=== PATIENT | female | born 1945 | race Hispanic/Latino ===

== ENCOUNTER 2017-04-30 08:22 | Observation (INO) | payer MEDICARE, OTHER ==
[2017-04-29 13:53] LABS: BASOPHILS % 0.4 % (0.0-1.0); EOSINOPHILS # (AUTO) 0.3 (0.0-0.4); EOSINOPHILS % 3.9 % (0.0-6.0); HEMATOCRIT 36.3 % (38.2-49.6); HEMOGLOBIN 12.1 g/dL (14.0-18.0); LYMPHOCYTES # (AUTO) 2.4 (1.0-3.2); LYMPHOCYTES % 30.8 % (18.0-39.1); MEAN CORPUSCULAR HEMOGLOBIN 29.7 pg (28-32); MEAN CORPUSCULAR HGB CONC 33.3 g/dL (31-35); MEAN CORPUSCULAR VOLUME 89.2 fL (81-99); MONOCYTES # (AUTO) 0.8 (0.2-0.8); MONOCYTES % 10.6 % (4.4-11.3); NEUTROPHILS # (AUTO) 4.1 (2.1-6.9); PLATELET COUNT 189 x10e3/uL (140-360); RED BLOOD COUNT 4.07 x10e6/uL (4.3-5.7); RED CELL DISTRIBUTION WIDTH 12.7 % (11.7-14.4)
[2017-04-29 14:13] LABS: INR 0.86; PROTHROMBIN TIME 12.1 seconds (11.9-14.5)
--- NOTE | 2017-04-29 14:16 | Diagnostic Imaging Report ---
PROCEDURE: Frontal and lateral views of the chest. COMPARISON: None. INDICATIONS: PRE OPERATIVE CHEST X-RAY FOR HEART SURGERY FINDINGS: Lines/tubes: None. Lungs: The lungs are well inflated and clear. There is no evidence of pneumonia or pulmonary edema. Pleura: There is no pleural effusion or pneumothorax. Heart and mediastinum: The heart and the mediastinum are normal. Bones: Multilevel degenerative changes of the thoracic spine. IMPRESSION: 1. No acute cardiopulmonary disease. Dictated by: Nacho Stoll M.D. on 04/29/2017 at 14:19 Electronically approved by: Nacho Stoll M.D. on 04/29/2017 at 14:24
[2017-04-29 14:20] LABS: ALANINE AMINOTRANSFERASE 23 IU/L (0-55); ALBUMIN 3.8 g/dL (3.5-5.0); ALKALINE PHOSPHATASE 42 IU/L (40-150); ANION GAP 13.9 mmol/L (8-16); BLOOD UREA NITROGEN 15 mg/dL (7-26); BUN/CREATININE RATIO 22 (6-25); CALCIUM 10.6 mg/dL (8.4-10.2); CARBON DIOXIDE 31 mmol/L (22-29); CHLORIDE 103 mmol/L (98-107); CHOL/HDL RATIO 2.9 (3.9-4.7); CHOLESTEROL 179 MD/DL (0-199); CREATININE, SERUM 0.67 mg/dL (0.72-1.25); EST GLOMERULAR FILTRATION RATE > 60 ML/MIN (60-); GLUCOSE 134 mg/dL (74-118); HDL CHOLESTEROL 61 MG/DL (40-60); LDL CHOLESTEROL 97 MG/DL (60-130); POTASSIUM 4.9 mmol/L (3.5-5.1); SODIUM 143 mmol/L (136-145); TRIGLYCERIDES 103 MG/DL (0-149)
[~2017-04-30] VITALS: Ht 149.9 cm; Wt 60.3 kg
[2017-04-30] VITALS (11 sets, daily range): BP systolic 138–175; BP diastolic 58–75
[~2017-04-30 08:22] MED LIST: ALENDRONATE SOD70 MG PO; FENTANYL CITRATE/PF 100MCG/2 ML INJ ONE; HEPARIN SOD (PORCINE) 1000 UNIT/ML 30ML ONE; HEPARIN SOD/SOD CHLORIDE 2,000 ML ONE; IOPAMIDOL 370 MG/ML 200 ML INFUS..BTL INJ ONE; JANUVIA100 MG PO; LEVOTHYROXINE50 MCG PO; LIDOCAINE HCL 2% LOCAL 20 ML VIAL ONE; METFORMIN HCL500 M2 PO; MIDAZOLAM HCL 2 MG/2 ML VIAL ONE; NITROGLYCERIN/D5W 200 MCG/ML 250 ML ONE; PRAVASTATIN SOD40 MG PO; SODIUM CHLORIDE 0.9% 1000ML 1,000 ML ONE; TYLENOL325 MG PO; VASOTEC5 MG PO
[2017-04-30] MEDS ORDERED: BIVALIRUDIN 250 MG/VIAL IV ONE (08:53)
[2017-04-30] MEDS ORDERED: SODIUM CHLORIDE 0.9% 50ML 50 ML ONE (08:53)
[2017-04-30] MEDS ORDERED: IOPAMIDOL 370 MG/ML 200 ML INFUS..BTL INJ ONE (08:58)
[2017-04-30] MEDS ORDERED: CLOPIDOGREL BISULFATE 75 MG TAB ONE ×2 (09:01→09:02)
[2017-04-30] MEDS ORDERED: ASPIRIN 81 MG CHEW TAB ONE (09:02)
[2017-04-30] MEDS: SODIUM CHLORIDE 0.9% 1000ML 1,000 ML IV SCH ×3 (09:43→22:27)
[2017-04-30] MEDS ORDERED: HYDROCODONE/APAP 5MG-325MG TAB PO PRN (09:45)
[2017-04-30] MEDS ORDERED: ONDANSETRON HCL INJ 2 MG/ML VIAL IV PRN (09:45)
--- NOTE | 2017-04-30 10:41 | History and Physical ---
CARDIOLOGY HISTORY AND PHYSICAL CHIEF COMPLAINT: Placed in OBS for status post RPDA, drug-eluting stent PCI. HISTORY OF PRESENT ILLNESS: Ms. Staley is a 71-year-old woman with diabetes, hypertension, dyslipidemia presenting with dyspnea on exertion concerning for crescendo angina pectoris, CCS-3, frequent PVCs. Had outpatient testing, including abnormal stresses with mild impairment and limited diastolic function for which cardiac catheterization was performed today confirming severe RPDA ostial to proximal stenosis, now status post drug-eluting stent PCI, as well as moderate disease of other coronary vessels. LVEF estimated at 50% to 55%. Frequent PVCs noted throughout the coronary angiography. Patient is status post aspirin 325 mg, as well as clopidogrel 600 mg loading today. Placed in observation. No current complaints. REVIEW OF SYSTEMS: A 12-system review is negative except for as noted above. ALLERGIES: NO KNOWN DRUG ALLERGIES. PAST MEDICAL HISTORY: As per HPI. Also, hypothyroidism, osteoporosis. SOCIAL HISTORY: No smoking, alcohol or drugs. FAMILY HISTORY: Noncontributory. PHYSICAL EXAMINATION VITALS: Blood pressure 170/70, heart rate 68, frequent PVCs on telemetry, respiratory rate 18, O2 sat 100% on room air. GENERAL: No acute distress. Alert. NECK: No JVD. CHEST: Clear to auscultation. CARDIOVASCULAR: Regular rate and rhythm. Normal S1 and S2. No S3. No S4. No murmurs or rubs. ABDOMEN: Soft. EXTREMITIES: No edema. Warm distal extremities. CARDIOVASCULAR MEDICATIONS: Reviewed. LABS: Reviewed. ASSESSMENT 1. Coronary artery disease: Status post drug-eluting stent and percutaneous coronary intervention to right posterior descending artery with otherwise moderate disease of the rest of the coronary tree. 2. Preserved left ventricular systolic function on left ventriculogram done today. 3. Frequent premature ventricular contractions. RECOMMENDATIONS: Resume home medications. Continue aspirin and Plavix. Bedrest for the next 4 hours. IV fluids. Keep overnight under observation. Will plan for discharge early in a.m. depending on the patient's continued course. Upon discharge, follow up in 2 weeks in the office. Job#: [id number] [place]
--- NOTE | 2017-04-30 10:56 | Operative Report ---
DATE OF PROCEDURE: April 30, 2017 PROCEDURE INDICATIONS: Frequent PVCs, abnormal stress test, dyspnea on exertion concerning crescendo angina pectoris, CCS-3. PROCEDURES PERFORMED 1. Left heart catheterization. 2. Selective coronary angiography times 2. 3. Right posterior descending artery drug-eluting stent percutaneous coronary intervention with Synergy 2.25 x 16 drug-eluting stent. COMPLICATIONS: None. ESTIMATED BLOOD LOSS: Less than 15 mL. PROCEDURE SUMMARY: After consent was obtained, the patient was prepped and draped in a sterile fashion. The right femoral vein was locally infiltrated with 2% lidocaine. Access was obtained using the micropuncture kit, and a 6-Yoruba sheath was placed. All 6-Yoruba catheters were railed over a leading J-wire to their respected positions. A JL4 catheter was used for engagement of the left main, and a JR4 was used for the right coronary artery. A JR4 guide catheter with side holes was used for PCI for this procedure. At the end of the procedure, a 6-Yoruba Angio-Seal closure was deployed successfully. The following findings were noted: 1. LD pressure was 180/70 with end-diastolic pressure of 16. 2. Aortic pressure was 180/70. 3. LV-gram revealed normal left ventricular systolic function with left ventricular ejection fraction of 50% to 55% and normal regional wall motion. 4. Left main with moderate calcifications and distal 30% stenosis, large in caliber and gives off to an LAD and a circumflex. 5. The LAD is medium caliber and terminates in the apical segment of anterior wall with the apex being predominately perfused by the RPDA. The proximal RCA is moderate to severely calcified with 40% stenosis giving 1st diagonal of a small caliber with 50% mid-stenosis of the diagonal. The mid-LAD has 40% stenosis. At least 3 additional small caliber diagonals and multiple septal perforators arise from the distal LAD, which is overall small in caliber. 6. The circumflex is medium in caliber with a 40% proximal stenosis, which is diffuse and 30% stenosis, which is tubular between the 1st and 2nd obtuse marginals. There is a 3rd obtuse marginal. All obtuse marginals are small in caliber. Moderate calcifications were noted throughout the circumflex. 7. The right coronary artery is a dominant and large caliber vessel. The proximal to mid-RCA is diffusely diseased at 40%. There is additional 50% napkin ring lesion that is focal at 50% in the mid-RCA. An additional 30% focal lesion of 30% stenosis in the distal portion of the RCA. The RPDA is a medium caliber vessel with 70% proximal and ostial stenosis. This was the target lesion, which was treated successfully as described below. 8. The RPDA also arises from the distal RCA and is small to medium in caliber with 30% stenosis of 2 terminal branches. The JL4 guide catheter was used for engagement of the right coronary artery. A run through wire was positioned in the distal RPDA. Max aspirin and Plavix were used throughout this procedure. Pre-dilatation of the ostial to proximal lesion of the RPDA was performed with a 2 x 12 [place] Emerge to 9 atmospheres. This was followed by Synergy Skyrobotic Synergy drug-eluting stent, 2.25 x 16 mm deployed successfully across the target lesion. Post procedure, there was residual moderate disease of the RCA as previously noted, and 40% diffuse of the proximal to mid-RCA, and 50% additional mid-RCA and 30% distal RCA areas of stenosis. Distal to the RPDA stent, there was residual 20% to 30% area of stenosis. There was no dissections. No perforations. LEONARD-3 flow overall. Good position of the stent. It was decided to proceed with Angio-Seal closure. CONCLUSIONS: Successful right posterior descending artery drug-eluting stent percutaneous coronary intervention. RECOMMENDATIONS: Aggressive medical therapy for multivessel coronary artery disease. Aspirin and Plavix. Follow up in the office. Further recommendations to follow. Job#: [id number] [place]
[2017-04-30] MEDS ORDERED: LEVOTHYROXINE SODIUM 50 MCG TAB PO SCH (11:00)
[2017-04-30] MEDS ORDERED: NON-FORMULARY MEDICATION (Pravastatin Sodium 40 MG) PO SCH (21:00)
[2017-04-30] MEDS ORDERED: PRAVASTATIN 20 MG TAB PO SCH (21:00)
[2017-04-30] MEDS ORDERED: DEXTROSE 50% SYRINGE 50 ML IV PRN (21:00)
[2017-04-30] MEDS ORDERED: INSULIN DETEMIR 100 UNIT/ML PEN SQ SCH (21:00)
[2017-05-01 00:29] VITALS: BP 161/70
[2017-05-01 05:00] VITALS: BP 163/72
[2017-05-01] MEDS: SODIUM CHLORIDE 0.9% 1000ML 1,000 ML IV SCH (05:10)
[2017-05-01] MEDS ORDERED: LEVOTHYROXINE SODIUM 50 MCG TAB PO SCH (06:00)
[2017-05-01 07:04] LABS: BASOPHILS % 0.3 % (0.0-1.0); EOSINOPHILS # (AUTO) 0.4 (0.0-0.4); EOSINOPHILS % 5.4 % (0.0-6.0); HEMATOCRIT 32.6 % (34.2-44.1); HEMOGLOBIN 11.4 g/dL (12.0-16.0); LYMPHOCYTES % 30.8 % (18.0-39.1); MEAN CORPUSCULAR HEMOGLOBIN 30.6 pg (28-32); MEAN CORPUSCULAR VOLUME 87.6 fL (81-99); MONOCYTES # (AUTO) 0.8 (0.2-0.8); NEUTROPHILS # (AUTO) 3.3 (2.1-6.9); NEUTROPHILS % 51.3 % (38.7-80.0); PLATELET COUNT 173 x10e3/uL (140-360); RED BLOOD COUNT 3.72 x10e6/uL (3.6-5.1); RED CELL DISTRIBUTION WIDTH 12.9 % (11.7-14.4)
[2017-05-01 07:28] LABS: ANION GAP 11.3 mmol/L (8-16); BLOOD UREA NITROGEN 9 mg/dL (7-26); BUN/CREATININE RATIO 17 (6-25); CALCIUM 8.6 mg/dL (8.4-10.2); CARBON DIOXIDE 27 mmol/L (22-29); CHLORIDE 108 mmol/L (98-107); CREATININE, SERUM 0.54 mg/dL (0.57-1.11); EST GLOMERULAR FILTRATION RATE > 60 ML/MIN (60-); GLUCOSE 141 mg/dL (74-118); POTASSIUM 3.3 mmol/L (3.5-5.1); SODIUM 143 mmol/L (136-145)
[2017-05-01 07:55] VITALS: BP 132/60
[2017-05-01] MEDS: INSULIN REGULAR, HUMAN 100 UNIT/1 ML 3ML VIAL SQ SCH ×2 (08:27→12:10)
[2017-05-01] MEDS ORDERED: ASPIRIN 325 MG TAB PO SCH (09:00)
[2017-05-01] MEDS ORDERED: CLOPIDOGREL BISULFATE 75 MG TAB PO SCH (09:00)
[2017-05-01] MEDS ORDERED: ENALAPRIL MALEATE 5 MG TAB PO SCH (09:00)
[2017-05-01] MEDS ORDERED: SITAGLIPTIN 100 MG TAB PO SCH (09:00)
[2017-05-01] MEDS ORDERED: ASPIRIN 81 MG ENTERIC COATED PO SCH (09:00)
[2017-05-01] MEDS ORDERED: PLAVIX75 MG PO (09:31)
[2017-05-01] MEDS ORDERED: ASPIRIN EC81 MG PO (09:31)
[2017-05-01] MEDS ORDERED: LANTUS 3ML100 UNITS/ SC (09:35)
--- NOTE | 2017-05-01 10:01 | Discharge Summary ---
ADMISSION DIAGNOSES 1. Coronary artery disease. 2. Crescendo angina pectoris. DISCHARGE DIAGNOSES 1. Coronary artery disease, status post right posterior descending artery drug-eluting stent. 2. Frequent premature ventricular contractions. HISTORY OF PRESENT ILLNESS: This is a 71-year-old woman with a history of diabetes mellitus, hypertension, and hyperlipidemia, who presented with scheduled cardiac catheterization. She was found to have 70% proximal ostial stenosis of the RPDA for which she underwent drug-eluting stent placement. After PCI, she was monitored in the hospital overnight and discharged home the following morning in stable condition. She was counseled on the importance of dual antiplatelet therapy, as well as glycemic control. FOLLOWUP: Dr. Gamble in 2 weeks. MEDICATIONS: Please see medication list. DISCHARGE ACTIVITY: As tolerated. No heavy lifting. No driving. Do not soak procedure site in water. PHYSICAL EXAMINATION VITALS: Temperature 97.4 degrees, pulse 77, respiratory rate 18, blood pressure 132/60, oxygen saturation 98% on room air. GENERAL: Awake, alert and in no acute distress. LUNGS: Clear to auscultation bilaterally. No wheezes or crackles. CARDIOVASCULAR: Normal rate and regular rhythm. No murmur. Normal S1 and S2. ABDOMEN: Soft and nontender. EXTREMITIES: No edema. Right groin without hematoma or bruit. Palpable femoral arterial pulse. Telemetry is normal sinus rhythm with frequent PVCs. TERENCE PERRY MD Job#: [id number] [place]
[2017-05-01 12:26] VITALS: BP 138/61
[2017-05-01] MEDS ORDERED: INFLUENZA VIRUS VAC SPLIT INJ 0.5 ML SYR IM ONE (13:00)
== END 2017-05-01 13:32 | disposition home or self-care (01) ==
LOC: CATH LAB 08:22 → IMCU 10:20
PROVIDERS: ADMIT Internal Medicine Cardiovascular Disease; ATTEND Internal Medicine Cardiovascular Disease
DX: I25.118 Atherosclerotic heart disease of native coronary artery with other forms of angina pectoris (principal); I49.3 Ventricular premature depolarization; E11.9 Type 2 diabetes mellitus without complications; I10 Essential (primary) hypertension; E78.5 Hyperlipidemia, unspecified
CPT/HCPCS: 36415 ×3; 71020; 80048; 80053; 80061; 82948 ×2; 85025 ×2; 85610; 93306; 96361; C1769; C9600; G0378 ×2; J0583; J1644; J2001; J2250; J7030 ×2; Q9967; 36140; 92920; 93452; 93458

== ENCOUNTER → 2018-05-19 | Day surgery (SDC) | payer MEDICARE, OTHER ==
[2018-05-11 16:32] LABS: BASOPHILS % 0.5 % (0.0-1.0); EOSINOPHILS # (AUTO) 0.3 (0.0-0.4); EOSINOPHILS % 3.3 % (0.0-6.0); HEMATOCRIT 33.7 % (34.2-44.1); HEMOGLOBIN 11.4 g/dL (12.0-16.0); LYMPHOCYTES # (AUTO) 2.4 (1.0-3.2); LYMPHOCYTES % 32.4 % (18.0-39.1); MEAN CORPUSCULAR HEMOGLOBIN 30.2 pg (28-32); MEAN CORPUSCULAR HGB CONC 33.8 g/dL (31-35); MEAN CORPUSCULAR VOLUME 89.4 fL (81-99); MONOCYTES # (AUTO) 0.6 (0.2-0.8); MONOCYTES % 7.8 % (4.4-11.3); NEUTROPHILS # (AUTO) 4.2 (2.1-6.9); NEUTROPHILS % 55.7 % (38.7-80.0); PLATELET COUNT 216 x10e3/uL (140-360); RED BLOOD COUNT 3.77 x10e6/uL (3.6-5.1); RED CELL DISTRIBUTION WIDTH 12.9 % (11.7-14.4)
[~2018-05-19] MED LIST changes: +ASPIRIN EC81 MG PO; +DEXTROSE 5% 250ML 250 ML IV ONE; -HEPARIN SOD (PORCINE) 1000 UNIT/ML 30ML ONE; -HEPARIN SOD/SOD CHLORIDE 2,000 ML ONE; -IOPAMIDOL 370 MG/ML 200 ML INFUS..BTL INJ ONE; +LANTUS 3ML100 UNITS/ SC; -LIDOCAINE HCL 2% LOCAL 20 ML VIAL ONE; +METOPROLOL SUCC25 MG PO; -NITROGLYCERIN/D5W 200 MCG/ML 250 ML ONE; +OR PHACO EYE KIT ONE; +PLAVIX75 MG PO; +PREOP PHACO EYE KIT ONE; -SODIUM CHLORIDE 0.9% 1000ML 1,000 ML ONE
--- OUTSIDE RECORDS SUMMARY | 2018-05-19 11:08 | XMS REPORT ---
Author Author [facility] Address Unknown Phone Unavailable Care Team Providers Care Freight And Passenger Agent Name Role Phone Juan GUTIERREZ Unavailable Unavailable Problems This patient has no known problems. Allergies, Adverse Reactions, Alerts This patient has no known allergies or adverse reactions. Medications This patient has no known medications. Results Test Description Test Time Test Comments Text Results Atomic Results Result Comments CHEST 2 VIEWS [place] [address] Patient Name: INDERJIT STORY MR #: [id number] : 1945 Age/Sex: 71/M Req #: [id number] Adm Physician: Ordered by: TOM GUTIERREZ MD Report #: [id number] Location: [facility] Room/Bed: Procedure: [id number] DX/CHEST 2 VIEWS Exam Date: 04/29/17 Exam Time: 1350 REPORT STATUS: Signed PROCEDURE: Frontal and lateral views of the chest. COMPARISON: None. INDICATIONS: PRE OPERATIVE CHEST X-RAY FOR HEART SURGERY FINDINGS: Lines/tubes: None. Lungs: The lungs are well inflated and clear. There is no evidence of pneumonia or pulmonary edema. Pleura: There is no pleural effusion or pneumothorax. Heart and mediastinum: The heart and the mediastinum are normal. Bones: Multilevel degenerative changes of the thoracic spine. IMPRESSION: 1. No acute cardiopulmonary disease. Dictated by: Abdifatah Stoll M.D. on 04/29/2017 at 14:19 Electronically approved by: Abdifatah Stoll M.D. on 04/29/2017 at 14:24 Dictated By: ABDIFATAH STOLL MD [id number] Transcribed By: MAYO on 04/29/17 1424 COPY TO: TOM GUTIERREZ MD
--- OUTSIDE RECORDS SUMMARY | 2018-05-19 11:08 | XMS REPORT ---
Author Author Mallorie Edmonds Organization [employer] Address Unknown Phone Unavailable Care Team Providers Care Clinical Microbiologist Name Role Phone Mallorie Edmonds Unavailable Allergies, Adverse Reactions, Alerts Substance Reaction Event Type N.K.D.A. 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 Problem Mitral regurgitation 424.0 Active Problem Hypercholesterolemia 272.0 Active Problem Angina effort 413.9 Active Problem HTN (hypertension) 401.9 Active Problem DM type 2 (diabetes mellitus, type 2) 250.00 Active Medications Medication Code System Code Instructions Start Date End Date Status Dosage Enalapril Maleate [facility] [address]-72 5 MG Orally Once a day Active 1 tablet Januvia [facility] [address]-52 100 MG Orally Once a day Active 1 tablet Alendronate Sodium [facility] [address]-88 70 MG Orally Once a week Active 1 tablet Glimepiride [facility] [address]-93 4 mg Orally Twice a day Active 1 tablet with breakfast or the first main meal of the day Pravastatin Sodium [facility] [address]-90 40 MG Orally Once a day Active 1 tablet Metformin HCl [facility] [address]-14 500 MG Orally Twice a day Active 1 tablet with meals Levothyroxine Sodium [facility] [address]-05 50 MCG Orally Once a day Active 1 tablet on an empty stomach in the morning Social History Social History Element Qualifiers Date Reported Smoking . Status Never Smoker Jan 31, 2014 Alcohol Use No. Jan 31, 2014 Alcohol Screening: No. Did you have a drink containing alcohol in the past year?: No, Points: 0, Interpretation: Negative Jan 31, 2014 Marital Status: single. Jan 31, 2014 Do you drink alcohol? No. 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
--- OUTSIDE RECORDS SUMMARY | 2018-05-19 11:08 | XMS REPORT | Continuity of Care Document ---
Author Author [facility] Address Unknown Phone Unavailable Problems Problem Status Onset Date Classification Date Reported Comments Source Varicose veins of lower extremities with complications Active Diagnosis 03/26/2014 Duran Edmonds Right carotid bruit Active Problem 03/26/2014 Duran Edmonds Venous insufficiency Active Problem 03/26/2014 Duran Edmonds Venous insufficiency (peripheral) Active Diagnosis 03/26/2014 Duran Edmonds Aortic annular calcification Active Problem 03/26/2014 Duran Edmonds Tricuspid valve disorder Active Problem 03/26/2014 Duran Edmonds Mitral regurgitation Active Problem 03/26/2014 Duran Edmonds Hypercholesterolemia Active Problem 03/26/2014 Duran Edmonds Angina effort Active Problem 03/26/2014 Duran Edmonds HTN Active Problem 03/26/2014 Duran Edmonds DM type 2 Active Problem 03/26/2014 Duran Edmonds Medications Medication Details Route Status Patient Instructions Ordering Provider Order Date Source Enalapril Maleate 1 tablet Orally Active 5 MG Orally Once a day Grey Edmonds Januvia 1 tablet Orally Active 100 MG Orally Once a day Grey Edmonds Alendronate Sodium 1 tablet Orally Active 70 MG Orally Once a week Grey Edmonds Glimepiride 1 tablet with breakfast or the first main meal of the day Orally Active 4 mg Orally Twice a day Grey Edmonds Pravastatin Sodium 1 tablet Orally Active 40 MG Orally Once a day Grey Edmonds Metformin HCl 1 tablet with meals Orally Active 500 MG Orally Twice a day Grey Edmonds Levothyroxine Sodium 1 tablet on an empty stomach in the morning Orally Active 50 MCG Orally Once a day Grey Edmonds Allergies, Adverse Reactions, Alerts Substance Category Reaction Severity Reaction type Status Date Reported Comments Source N.K.D.A. Adverse Reaction Info Not Available Adverse Reaction Active 01/31/2014 Duran Edmonds Immunizations Immunization Date Given Site Status Last Updated Comments Source Results Order Name Results Value Reference Range Date Interpretation Comments Source Vital Signs Vital Sign Value Date Comments Source Weight 133 01/31/2014 Duran Edmonds Height 63 01/31/2014 Duran Edmonds Temperature Oral (F) 97.3 F 01/31/2014 Duran Edmonds Heart Rate 88 01/31/2014 Duran Edmonds Diastolic (mm Hg) 70 01/31/2014 Duran Edmonds Systolic (mm Hg) 120 01/31/2014 Duran Edmonds Encounters Location Location Details Encounter Type Encounter Number Reason For Visit Attending Provider ADM Date DC Date Status Source Duran Edmonds [place] Unknown [id number] 01/31/2014 01/31/2014 Duran Edmonds Procedures Procedure Code Date Perfomer Comments Source
[2018-05-19 13:45] VITALS: BP 148/59
== END | disposition home or self-care (01) ==
LOC: OR 10:49
PROVIDERS: ATTEND Ophthalmology
DX: H25.11 Age-related nuclear cataract, right eye (principal); I10 Essential (primary) hypertension; E11.9 Type 2 diabetes mellitus without complications; Z79.84 Long term (current) use of oral hypoglycemic drugs; Z79.4 Long term (current) use of insulin; E03.9 Hypothyroidism, unspecified; I73.9 Peripheral vascular disease, unspecified; M19.90 Unspecified osteoarthritis, unspecified site; Z01.812 Encounter for preprocedural laboratory examination; Z79.82 Long term (current) use of aspirin
CPT/HCPCS: 36415; 82948; 85025; J2250; J7070; V2632